=== PATIENT | female | born 1975 | race Caucasian/White ===

== ENCOUNTER 2017-05-26 20:39 | Emergency (ER) | payer OTHER ==
[2017-05-26 20:47] VITALS: BP 133/58
[2017-05-26] MEDS ORDERED: Acetaminophen TAB* 325 MG PO ONE (22:07)
--- NOTE | 2017-05-26 22:10 | UC ---
Ear Complaint HPI - HPI Summary HPI Summary: c/o acute very sharp ear pain this afternoon and states she has been having a cold for the past week. SHe had IVF recently and is taking hormonal therapy, has not taken other medications due to fear of side effects on the embryo. SHe states she had recurrent ear infections as a child and before the IVF used flonase to decongest her nasal passages but not recently. Denies fever, cough - History of Current Complaint Chief Complaint: UCEar Stated Complaint: EAR PAIN Time Seen by Provider: 05/26/17 21:51 Hx Last Menstrual Period: 04/29/17 - Allergies/Home Medications Allergies/Adverse Reactions: Allergies Allergy/AdvReac Type Severity Reaction Status Date / Time No Known Allergies Allergy Verified 05/26/17 20:46 Home Medications: Home Medications Fluticasone Propionate Hfa [Flovent Hfa] 05/26/17 [History] Multiple Vitamins W/ Minerals [Vitamins & Minerals] 05/26/17 [History Confirmed 05/26/17] Progesterone SUPP (NF) [Endometrin SUPP (NF)] 05/26/17 [History] Progesterone* [Progesterone in Oil*] 05/26/17 [History] PMH/Surg Hx/FS Hx/Imm Hx Previously Healthy: Yes Respiratory History: Asthma - Surgical History Surgical History: Yes Surgery Procedure, Year, and Place: c section 2013 - Family History Known Family History: Positive: Other - colon and skin CA - father Negative: Cardiac Disease, Hypertension, Diabetes - Social History Alcohol Use: None Substance Use Type: None Smoking Status (MU): Never Smoked Tobacco - Immunization History Most Recent Influenza Vaccination: 2015 Most Recent Tetanus Shot: 09/18/13 Most Recent Pneumonia Vaccination: none Review of Systems Constitutional: Negative ENT: Ear Ache All Other Systems Reviewed And Are Negative: Yes Physical Exam Triage Information Reviewed: Yes Vital Signs: Initial Vital Signs Temp 98.6 F 05/26/17 20:43 Pulse 78 05/26/17 20:43 Resp 16 05/26/17 20:43 BP 133/58 05/26/17 20:43 Pulse Ox 100 05/26/17 20:43 Eye Exam: Normal ENT Exam: Other - left TM with erythema on osicle insertion ENT: Positive: Hearing grossly normal, Pharynx normal, TM red Neck exam: Normal Respiratory Exam: Normal Cardiovascular Exam: Normal Ear Complaint Course/Dx - Course Course Of Treatment: NS nasal spray, fluticasone prn, tylenol prn - Differential Dx/Diagnosis Provider Diagnoses: Earache. Eustachian tube dysfunction Discharge - Discharge Plan Condition: Stable Disposition: HOME Patient Education Materials: Earache (ED) Referrals: Margaux Partida MD [Primary Care Provider] - Additional Instructions: eustachian tube dysfunction
== END 2017-05-26 22:30 | disposition home or self-care (01) ==
LOC: UCEAST 20:39
DX: H92.09 Otalgia, unspecified ear (principal); H69.80 Other specified disorders of Eustachian tube, unspecified ear
CPT/HCPCS: 99212; A9270-GY; G0463